=== PATIENT | female | born 1960 | race African-American/Black ===

== ENCOUNTER 2017-01-01 10:44 | Emergency (ER) | payer SELFPAY ==
[~2017-01-01] VITALS: Ht 167.6 cm; Wt 94.5 kg
[2017-01-01] MEDS ORDERED: NORVASC5 MG PO (11:34)
[2017-01-01 12:45] LABS: BILIRUBIN NEGATIVE; BLOOD NEGATIVE; COLOR YELLOW ((YELLOW)); GLUCOSE (STRIP) NEGATIVE; KETONES NEGATIVE; LEUKOCYTES NEGATIVE; NITRITE NEGATIVE; PROTEIN (STRIP) NEGATIVE; SPECIFIC GRAVITY 1.016 (1.000-1.030); UROBILINOGEN 0.2 MG/DL (0.2-1.0)
[2017-01-01 12:47] LABS: AMPHETAMINE NEGATIVE (500 ng/mL); BARBITURATES NEGATIVE (200 ng/mL); BENZODIAZEPINES NEGATIVE (150 ng/mL); COCAINE PRESUMPTIVE POSITIVE (150 ng/mL); METHADONE NEGATIVE (200 ng/mL); METHAMPHETAMINE NEGATIVE (500 ng/mL); OPIATES (MORPHINE) NEGATIVE (100 ng/mL); OXYCODONE NEGATIVE (100 ng/mL); PHENCYCLIDINE NEGATIVE (25 ng/mL); PROPOXYPHENE NEGATIVE (300 ng/mL); THC CANNABINOIDS NEGATIVE (50 ng/mL); TRICYCLIC ANTIDEPRESSANTS NEGATIVE (300 ng/mL)
[2017-01-01 12:48] LABS: ADD MEDTOX COMMENT Y; ADD MIUA? NO; INTERNAL CONTROLS VALID? YES; UCUL ADDED? NO
[2017-01-01] MEDS ORDERED: LIDODERM 5% P1 PATCH TD (13:15)
[2017-01-01] MEDS ORDERED: ATARAX,VISTARIL50 MG PO (13:15)
[2017-01-01] MEDS ORDERED: MOTRIN800 MG PO (13:15)
[2017-01-01 13:28] VITALS: BP 140/81
== END 2017-01-01 13:30 | disposition home or self-care (01) ==
LOC: EME 10:44
PROVIDERS: Nurse Practitioner Family
DX: R10.9 Unspecified abdominal pain (principal); M54.5 Low back pain; F14.90 Cocaine use, unspecified, uncomplicated; F41.9 Anxiety disorder, unspecified
CPT/HCPCS: 74000; 81003; 84999; 99281; 99284; J1885; Q0177